=== PATIENT | male | born 1980 | race Caucasian/White ===

== ENCOUNTER 2018-05-04 10:30 | Emergency (ER) | payer MEDICARE, OTHER ==
[2018-05-04 10:36] VITALS: BMI 20.5
[2018-05-04 10:37] VITALS: BP 149/82; PULSE 99; RESP 17; TEMP 98.6; O2SAT 97
--- NOTE | 2018-05-04 11:42 | ED PDOC ---
HPI: Dental Pain/Injury Time Seen by Provider: 05/04/18 11:02 Chief Complaint (Nursing): Dental Pain Chief Complaint (Provider): Dental Pain History Per: Patient History/Exam Limitations: no limitations Onset/Duration Of Symptoms: Days Current Symptoms Are (Timing): Still Present Additional Complaint(s): Patient is a 37 y/o male with a PMHx of back problems who presents to the ED for evaluation of left-sided tooth ache and left lower jaw swelling for several days. Patient reports left lower jaw pain while eating. Patient was supposed to see a dentist but has been unable to see one. Patient has not taken any medication for the pain. Patient denies fever, headaches, and difficulty breathing or swallowing food. PCP: None Provided Past Medical History Reviewed: Historical Data, Nursing Documentation, Vital Signs Vital Signs: Last Vital Signs Temp 98.6 F 05/04/18 10:35 Pulse 99 H 05/04/18 10:35 Resp 17 05/04/18 10:35 BP 149/82 05/04/18 10:35 Pulse Ox 97 05/04/18 10:35 - Medical History PMH: Back Problems - Surgical History Surgical History: No Surg Hx - Family History Family History: States: No Known Family Hx - Home Medications Home Medications: Ambulatory Orders Medication Instructions Recorded Cyclobenzaprine HCl [Flexeril] 10 mg PO Q8 #20 tab 08/21/14 Prednisone 50 mg PO DAILY #6 tab 08/21/14 oxyCODONE/Acetaminophen [Percocet 1 tab PO Q4H PRN #20 tab 08/21/14 5/325 mg Tab] Amoxicillin/Clavulanate [Augmentin 1 tab PO BID #14 tab 05/04/18 875 MG-125 MG] Ibuprofen [Motrin] 600 mg PO Q6 #20 tab 05/04/18 - Allergies Allergies/Adverse Reactions: Allergies Allergy/AdvReac Type Severity Reaction Status Date / Time No Known Allergies Allergy Verified 08/21/14 16:29 Review of Systems ROS Statement: Except As Marked, All Systems Reviewed And Found Negative Constitutional: Negative for: Fever, Other (difficulty swallowing food) ENT: Positive for: Other (left-sided tooth ache and left lower jaw swelling) Respiratory: Negative for: Other (difficulty breathing) Neurological: Negative for: Headache Physical Exam - Reviewed Nursing Documentation Reviewed: Yes Vital Signs Reviewed: Yes - Physical Exam Appears: Positive for: Non-toxic, No Acute Distress (comfortable) Head Exam: Positive for: ATRAUMATIC, NORMAL INSPECTION, NORMOCEPHALIC Skin: Positive for: Normal Color, Warm, Dry Eye Exam: Positive for: EOMI, Normal appearance, PERRL ENT: Positive for: Pharynx Is (normal), Other (2nd left molar has cavity; swelling localized to gums of left lower jaw). Negative for: Pharyngeal Erythema, Tonsillar Exudate, Tonsillar Swelling Neck: Positive for: Normal, Painless ROM, Supple Neurologic/Psych: Positive for: Alert, Oriented. Negative for: Motor/Sensory Deficits - ECG O2 Sat by Pulse Oximetry: 97 (RA) Pulse Ox Interpretation: Normal Medical Decision Making Medical Decision Making: Time: 1105 Impression: Dental Pain and Left Lower Jaw Swelling DDx includes but not limited to dental abscess. Plan: Patient instructed to followup with dentist during this week. Patient will be started, as outpatient, on Amoxicillin and Ibuprofen. Referral will be given to [facility]. Scribe Attestation: Documented by Chance Rasheed, acting as a scribe for Jorge Harrison MD. Provider Scribe Attestation: All medical record entries made by the Scribe were at my direction and personally dictated by me. I have reviewed the chart and agree that the record accurately reflects my personal performance of the history, physical exam, medical decision making, and the department course for this patient. I have also personally directed, reviewed, and agree with the discharge instructions and disposition. Disposition - Clinical Impression Clinical Impression: Toothache, Dental abscess - Patient ED Disposition Is Patient to be Admitted: No Doctor Will See Patient In The: Office Counseled Patient/Family Regarding: Studies Performed, Diagnosis, Need For Followup - [facility] Disposition: Routine/Home Disposition Time: 11:30 Condition: GOOD Additional Instructions: MICHEL LEGGETT, thank you for letting us take care of you today. Your provider was Jorge Harrison MD and you were treated for CHIN PAIN. The emergency medical care you received today was directed at your acute symptoms. If you were prescribed any medication, please fill it and take as directed. It may take several days for your symptoms to resolve. Return to the Emergency Department if your symptoms worsen, do not improve, or if you have any other problems. Please contact your doctor or call one of the physicians/clinics you have been referred to that are listed on the Patient Visit Information form that is incl uded in your discharge packet. Bring any paperwork you were given at discharge with you along with any medications you are taking to your follow up visit. Our treatment cannot replace ongoing medical care by a primary care provider outside of the emergency department. Thank you for allowing the [facility] team to be part of your care today. If you had an X-Ray or CT scan: A Radiologist will review the ED reading if any change in treatment is needed we will contact you. If you had a blood, urine, or wound culture: It will take several days for the results, if any change in treatment is needed we will contact you. If you had an STI test: It will take 48 hours for the results. Please call after 1 week if you have not heard back. Prescriptions: Amoxicillin/Clavulanate [Augmentin 875 MG-125 MG] 1 tab PO BID #14 tab Ibuprofen [Motrin] 600 mg PO Q6 #20 tab Instructions: Tooth Abscess (DC)
== END 2018-05-04 11:53 | disposition home or self-care (01) ==
LOC: SUPCPDRO 10:30 → H.ER 10:30
DX: K04.7 Periapical abscess without sinus (principal)